=== PATIENT | female | born 1970 | race African-American/Black ===

== ENCOUNTER 2024-05-25 19:19 | Inpatient (IN) | payer BC, MEDICAID ==
[~2024-05-25] VITALS: Ht 154.9 cm; Wt 80.7 kg
[~2024-05-25 19:19] MED LIST: ASPI-1497 PO; ATOR40TA70 PO; CETI10TA11 PO; CINA30 PO; DOCU-138 PO; ERGO1250 PO; FERR325T6 PO; FURO-152 PO; HYDR-3992 PO; HYDR-4005 PO; ISOS-51 PO; LANTUSUD SUBCUT; METO-539 PO; MONT-39 PO; NITR0.4T49 SL; SEVE800T8 PO; TAMS-11 PO; TICA90TA PO; TRAZ-252 PO; ZINC220C6 PO
[2024-05-25 21:43] LABS: HEMATOCRIT. 37.7 % (36.0-48.0); HEMOGLOBIN. 11.9 g/dL (12.0-16.0); LYMPHOCYTES % 13.2 % (20.0-50.0); MEAN CORPUSCULAR HGB CONC 31.6 g/dL (31.0-37.0); MEAN CORPUSCULAR VOLUME 98.1 fL (81.0-99.0); MEAN PLATELET VOLUME 8.7 fl (7.4-10.4); MONOCYTES % 8.5 % (2.0-8.0); NEUTROPHILS % 71.3 % (40.0-76.0); PLATELET 258 x1000/uL (130-400); RED BLOOD CELL COUNT 3.84 mill/uL (4.2-5.4); RED CELL DISTRIBUTION WIDTH 17.3 % (11.6-14.6); WHITE BLOOD COUNT 6.4 x1000/uL (4.5-11.0)
[2024-05-25 21:49] LABS: CALCIUM 9.8 mg/dL (8.7-10.4)
[2024-05-25 21:56] LABS: INR 0.9; PROTHROMBIN TIME 10.3 sec (9.6-11.0)
[2024-05-25 22:02] LABS: CREATININE 10.5 mg/dL (0.6-1.0)
[2024-05-25 22:03] LABS: POTASSIUM 6.2 mEq/L (3.5-5.1)
[2024-05-25] MEDS: SODIUM ZIRCONIUM CYCLOSILICATE 10GM/PACKET PO ONE (22:15)
[2024-05-25] MEDS ORDERED: CALCIUM CHLORIDE 1GM/10ML SYR IV ONE (22:15)
[2024-05-25] MEDS: CALCIUM GLUCONATE 1GM PREMIX 50 ML IV ONE (22:15)
[2024-05-25] MEDS: INSULIN REGULAR (HUMULIN R) 1000UNITS/10ML VIAL IV ONE (22:15)
[2024-05-25] MEDS: DEXTROSE 50% WATER 50ML SYRINGE IV ONE (22:15)
[2024-05-25] MEDS: CALCIUM GLUCONATE 1GM PREMIX 50 ML IV SCH (23:30)
[2024-05-25] MEDS: CALCIUM CHLORIDE 1GM/10ML SYR IV SCH (23:30)
[2024-05-26] VITALS (11 sets, daily range): BP systolic 74–173; BP diastolic 51–84; PULSE 73–78; RESP 14–18; TEMP 35.94732–36.8628; O2SAT 90–98
[2024-05-26] MEDS ORDERED: ONDANSETRON HCL 4MG/2ML INJ IV PRN (14:45)
[2024-05-26] MEDS ORDERED: ACETAMINOPHEN 325MG TABLET PO PRN (14:45)
[2024-05-26] MEDS ORDERED: CLONIDINE 0.1MG TABLET PO PRN (14:45)
[2024-05-26] MEDS: ENOXAPARIN 30MG/0.3ML SYR SUBCUT SCH (16:36)
[2024-05-26] MEDS ORDERED: DEXTROSE 50% WATER 50ML SYRINGE IV PRN (17:00)
[2024-05-26] MEDS: BLOOD SUGAR DIAGNOSTIC STRIP TEST SCH (17:10)
[2024-05-26] MEDS: INSULIN LISPRO 100 UNITS/ML SUBCUT SCH (18:02)
[2024-05-26] MEDS: DIPHENHYDRAMINE 50MG/ML VIAL IV PRN (18:36)
[2024-05-26] MEDS: INSULIN GLARGINE 100 UNITS/ML SUBCUT SCH (21:40)
[2024-05-26 21:41] LABS: BASOPHILS % 0.9 % (0.0-2.0); EOSINOPHILS % 6.2 % (0.0-5.0); HEMATOCRIT. 41.9 % (36.0-48.0); HEMOGLOBIN. 13.3 g/dL (12.0-16.0); LYMPHOCYTES % 12.5 % (20.0-50.0); MEAN CORPUSCULAR HEMOGLOBIN 31.3 pg (28.0-32.0); MEAN CORPUSCULAR HGB CONC 31.7 g/dL (31.0-37.0); MEAN CORPUSCULAR VOLUME 98.7 fL (81.0-99.0); MEAN PLATELET VOLUME 8.5 fl (7.4-10.4); MONOCYTES % 6.3 % (2.0-8.0); NEUTROPHILS % 74.1 % (40.0-76.0); PLATELET 254 x1000/uL (130-400); RED BLOOD CELL COUNT 4.24 mill/uL (4.2-5.4); WHITE BLOOD COUNT 6.5 x1000/uL (4.5-11.0)
[2024-05-26 21:46] LABS: POTASSIUM 4.5 mEq/L (3.5-5.1)
[2024-05-26 21:47] LABS: CALCIUM 9.6 mg/dL (8.7-10.4)
[2024-05-26 21:57] LABS: CREATININE 7.6 mg/dL (0.6-1.0)
[2024-05-26 22:09] LABS: HEPATITIS B SURFACE ANTIGEN NEGATIVE (Negative)
[2024-05-26 22:30] LABS: HEPATITIS A AB IGM NEGATIVE (Negative); HEPATITIS B CORE AB IGM NEGATIVE (Negative)
[2024-05-26 22:31] LABS: HEPATITIS C AB NON REACTIVE (Neg) (Negative)
[2024-05-27] VITALS: BP 161/47; PULSE 82; RESP 19; TEMP 36.6696; O2SAT 97
[2024-05-27] MEDS: ISOSORBIDE MONONITRATE 30MG TABLET SR 24HR PO SCH (00:11)
[2024-05-27 04:00] VITALS: BP 161/50; PULSE 19; RESP 19; TEMP 36.114; O2SAT 99
[2024-05-27 08:00] VITALS: BP 139/52; PULSE 77; RESP 18; TEMP 36.55848; O2SAT 99
[2024-05-27 09:03] LABS: CALCIUM 9.7 mg/dL (8.7-10.4)
[2024-05-27 09:16] LABS: CREATININE 8.7 mg/dL (0.6-1.0)
[2024-05-27] MEDS: SEVELAMER CARBONATE 800 MG TABLET PO SCH (09:23)
[2024-05-27] MEDS: ATORVASTATIN CALCIUM 40MG TABLET PO SCH (09:28)
[2024-05-27] MEDS: CINACALCET HCL 30MG TABLET PO SCH (09:28)
[2024-05-27] MEDS: DOCUSATE SODIUM 100MG CAPSULE PO SCH (09:29)
[2024-05-27] MEDS: ASPIRIN 81MG EC TABLET PO SCH (09:29)
[2024-05-27] MEDS: TAMSULOSIN HCL 0.4MG SR CAPSULE PO SCH (09:29)
[2024-05-27 09:31] LABS: BASOPHILS % 0.8 % (0.0-2.0); EOSINOPHILS % 7.5 % (0.0-5.0); HEMATOCRIT. 37.3 % (36.0-48.0); LYMPHOCYTES % 15.6 % (20.0-50.0); MEAN CORPUSCULAR HEMOGLOBIN 31.1 pg (28.0-32.0); MEAN CORPUSCULAR HGB CONC 32.2 g/dL (31.0-37.0); MEAN CORPUSCULAR VOLUME 96.8 fL (81.0-99.0); MEAN PLATELET VOLUME 8.8 fl (7.4-10.4); MONOCYTES % 8.6 % (2.0-8.0); NEUTROPHILS % 67.5 % (40.0-76.0); PLATELET 254 x1000/uL (130-400); RED BLOOD CELL COUNT 3.85 mill/uL (4.2-5.4); RED CELL DISTRIBUTION WIDTH 16.8 % (11.6-14.6); WHITE BLOOD COUNT 7.3 x1000/uL (4.5-11.0)
[2024-05-27 12:00] VITALS: BP 165/63; PULSE 91; RESP 18; TEMP 36.50292; O2SAT 98
[2024-05-27 16:00] VITALS: BP 165/63; PULSE 91; TEMP 36.50292
[2024-05-27 16:56] VITALS: BP 165/63; PULSE 91; TEMP 97.7; O2SAT 98
== END 2024-05-27 19:11 | disposition home or self-care (01) | DRG 640 ==
LOC: ER 19:19 → MICUSO 22:09 → 8WST 05-26 15:22
PROVIDERS: ADMIT Internal Medicine; ATTEND Internal Medicine
PROC: 5A1D70Z Performance of Urinary Filtration, Intermittent, Less than 6 Hours Per Day (ICD-10-PCS; principal; 2024-05-26)
DX: E87.5 Hyperkalemia (principal); N18.6 End stage renal disease; I12.0 Hypertensive chronic kidney disease with stage 5 chronic kidney disease or end stage renal disease; E78.5 Hyperlipidemia, unspecified; I25.10 Atherosclerotic heart disease of native coronary artery without angina pectoris; E11.22 Type 2 diabetes mellitus with diabetic chronic kidney disease; E11.51 Type 2 diabetes mellitus with diabetic peripheral angiopathy without gangrene; R79.89 Other specified abnormal findings of blood chemistry; Z99.2 Dependence on renal dialysis; Z95.5 Presence of coronary angioplasty implant and graft; Z79.899 Other long term (current) drug therapy; Z89.511 Acquired absence of right leg below knee; Z91.158 Patient's noncompliance with renal dialysis for other reason
CPT/HCPCS: 36415; 71045; 80048; 82962; 83036; 85025; 86705; 86709; 87340; 90935; 93005; 99291; J1200; J1650; J1815

== ENCOUNTER 2024-07-02 22:52 | Emergency (ER) | payer BC, MEDICAID ==
[~2024-07-02] VITALS: Ht 165.1 cm; Wt 73.0 kg
[2024-07-02 22:56] VITALS: PULSE 86; TEMP 37.5; O2SAT 99
[2024-07-02] MEDS: KETOROLAC 15MG/ML VIAL IM ONE (23:44)
[2024-07-02] MEDS: LIDOCAINE 5% PATCH TOP SCH (23:44)
[2024-07-03] MEDS ORDERED: LIDO700A15 TP (00:55)
[2024-07-03] MEDS ORDERED: NAPR-1176 MT (00:55)
[2024-07-03] MEDS ORDERED: ACET-2708 MT (03:16)
[2024-07-03 06:38] VITALS: TEMP 99.5
[2024-07-03] MEDS: ACETAMINOPHEN 325MG TABLET PO ONE (06:38)
[2024-07-03 09:32] VITALS: BP 138/52; RESP 16
== END 2024-07-03 09:46 | disposition home or self-care (01) ==
LOC: ER 22:52
DX: M79.606 Pain in leg, unspecified (principal); E11.9 Type 2 diabetes mellitus without complications; I10 Essential (primary) hypertension; Z79.02 Long term (current) use of antithrombotics/antiplatelets; Z79.1 Long term (current) use of non-steroidal anti-inflammatories (NSAID); Z79.899 Other long term (current) drug therapy; Z89.512 Acquired absence of left leg below knee
CPT/HCPCS: 99283; 96372; J1885